=== PATIENT | female | born 1930 | race Two or more races ===

== ENCOUNTER 2019-04-20 07:40 | Inpatient (IN) | payer MEDICARE, MEDICAID ==
[~2019-04-20] VITALS: Ht 152.4 cm; Wt 65.6 kg
[2019-04-20 08:18] LABS: Basophils # (auto) 0.1 uL; Basophils % (auto) 0.9 % (0.0-2.0); Eosinophils # (auto) 0 uL; Hematocrit 42.7 % (36.0-46.0); Hemoglobin 14.3 g/dL (12.2-16.2); Lymphocytes # (auto) 0.3 uL; Lymphocytes % (auto) 2.2 % (10.0-50.0); Mean Corpuscular Hemoglobin 32.3 pg (28.0-32.0); Mean Corpuscular Hgb Conc. 33.4 g/dL (32.0-36.0); Mean Corpuscular Volume 96.8 fL (80.0-100.0); Monocytes # (auto) 0.9 uL; Monocytes % (auto) 6.6 % (0.0-12.0); Neutrophils # (auto) 11.7 uL; Neutrophils % (auto) 90.3 % (37.0-80.0); Platelet Count (auto) 204 10^3/uL (140-450); Red Blood Cells 4.42 10^6/uL (4.0-5.20); Red Cell Distribution Width 15.9 % (11.8-14.3)
[2019-04-20 08:37] LABS: Albumin 3.9 g/dL (3.4-5.0); Anion Gap 7 (5-15); BUN/Creatinine Ratio 31.9; Blood Urea Nitrogen 23 mg/dL (7-18); Calcium 9.3 mg/dL (8.5-10.1); Carbon Dioxide 25 mmol/L (21-32); Chloride 102 mmol/L (98-107); GFR African American 98 mL/min; GFR Non-African American 81 mL/min; Glucose 123 mg/dL (74-106); Potassium 3.8 mmol/L (3.5-5.1); Sodium 134 mmol/L (136-145)
[2019-04-20 08:46] LABS: Alanine Aminotransferase 1835 U/L (13-56); Alkaline Phosphatase 292 U/L (45-117); Aspartate Aminotransferase 1719 U/L (15-37); Bilirubin, Total 2.9 mg/dL (0.2-1.0); Total Protein 8.4 g/dL (6.4-8.2)
[2019-04-20 09:23] LABS: Urine Bacteria FEW /hpf (None Seen); Urine Blood 2+ /uL (Negative); Urine Mucus FEW (None Seen); Urine Specific Gravity 1.033 (1.001-1.035); Urine WBC 1 /hpf (0 - 5)
[2019-04-20 10:17] LABS: Amylase 37 U/L (25-115); Lipase 86 U/L (73-393)
[2019-04-20] MEDS ORDERED: MORPHINE SULFATE 4 MG/ML SYR/VIAL IV PRN ×2 (13:00)
[2019-04-20] MEDS ORDERED: NITROGLYCERIN 0.4 MG SL TAB SL PRN (13:00)
[2019-04-20] MEDS ORDERED: MORPHINE SULF INJ 2 MG/ML SYRINGE 1ML IV PRN (13:00)
[2019-04-20] MEDS ORDERED: cefTRIAXone 1GM/50ML D5W 50 ML IV ONE (13:00)
[2019-04-20] MEDS ORDERED: ONDANSETRON HCL 4 MG/2 ML VIAL IV PRN (13:00)
[2019-04-20] MEDS: SODIUM CHLORIDE 0.9% 1,000 ML IV SCH ×2 (13:49→23:50)
[2019-04-20] MEDS ORDERED: IOHEXOL 350 MG/ML 100ML IJ ONE ×2 (16:14→18:10)
--- NOTE | 2019-04-20 16:20 | NUR ---
Telemetry admit from ER Patient admitted to Telemetry unit after SBAR received. Patient oriented to primary RN, unit, room, bed, and unit policies regarding patient care and visiting hours, patient's son at bedside. Patient now on continuous telemetry monitoring, tele box #12 and telemetry reading on arrival to unit is ST in the low 100's. Bed in lowest, locked position with side rails up x2. Fall precautions in place and call light within reach. All questions and concerns addressed, patient verbalized understanding via waste hand by family member. Will continue to monitor Q1hr/PRN.
[2019-04-20 16:35] VITALS: BP 129/50
--- NOTE | 2019-04-20 16:37 | NUR ---
PYREXIA Patient has elevated temperature, 101.8 orally. , Dr. Desai, aware, new orders received.
[2019-04-20] MEDS ORDERED: IBUPROFEN 100MG/5ML ORAL SUSP 100 MG/5 ML UD GT ONE (16:45)
[2019-04-20] MEDS ORDERED: METH2.5T3 PO (16:54)
[2019-04-20] MEDS ORDERED: ACET-1156 PO (16:54)
[2019-04-20] MEDS ORDERED: GLIM2TAB33 PO (16:54)
[2019-04-20] MEDS ORDERED: OXYB5TAB24 PO (16:54)
[2019-04-20] MEDS ORDERED: FOLI1TAB6 PO (16:54)
[2019-04-20] MEDS ORDERED: CERTKIT SC (16:54)
[2019-04-20] MEDS ORDERED: CHOL20007 OR (16:54)
[2019-04-20] MEDS ORDERED: IBUPROFEN 400 MG TAB PO ONE (17:00)
--- NOTE | 2019-04-20 17:17 | NUR ---
IV insertion Additional IV access needed for CT angiogram. IV access obtained, via clean sterile technique by inserting 20 gauge catheter at right forearm after 2 attempts. IV secured properly. No trauma to site. Patient tolerated well.
--- NOTE | 2019-04-20 17:28 | NUR ---
ACETAMINOPHEN Dr. Desai aware that patient has been taking Acetaminophen 500mg BID x 5-6mos, new order for Acetaminophen toxicity test.
--- NOTE | 2019-04-20 17:50 | NUR ---
OFF UNIT Patient taken off unit via wheelchair for CT angio. No S/S of distress noted.
--- NOTE | 2019-04-20 18:27 | NUR ---
RETURN TO UNIT Patient returned to unit via wheelchair. No S/S of distress noted.
--- NOTE | 2019-04-20 18:33 | NUR ---
REASSESSMENT Oral temperature 99.9. Cooling measurements continued. Addendum: 04/20/19 at 1927 by STACY LYLES RN SPELLING CORRECTION: Measures
--- NOTE | 2019-04-20 19:30 | NUR ---
pening Shift Note Assumed care of patient, awake and alert. Family at the bedside. No S/S of distress/SOB or pain. Safety measures in place side rails x2 up, bed in lowest position, and call light within reach. Instructed on POC and to call for assist PRN, will continue to monitor for changes Q1hr and PRN.
[2019-04-20 22:00] VITALS: BP 106/55
[2019-04-21 05:00] VITALS: BP 127/41
[2019-04-21 06:03] LABS: Basophils # (auto) 0 uL; Basophils % (auto) 0.4 % (0.0-2.0); Eosinophils # (auto) 0.1 uL; Eosinophils % (auto) 0.8 % (0.0-7.0); Hematocrit 37.5 % (36.0-46.0); Hemoglobin 12.7 g/dL (12.2-16.2); Lymphocytes # (auto) 0.3 uL; Lymphocytes % (auto) 2.9 % (10.0-50.0); Mean Corpuscular Hemoglobin 32.5 pg (28.0-32.0); Mean Corpuscular Hgb Conc. 33.8 g/dL (32.0-36.0); Mean Corpuscular Volume 96.3 fL (80.0-100.0); Monocytes # (auto) 0.8 uL; Monocytes % (auto) 8.3 % (0.0-12.0); Neutrophils # (auto) 8.1 uL; Neutrophils % (auto) 87.6 % (37.0-80.0); Platelet Count (auto) 149 10^3/uL (140-450); Red Blood Cells 3.89 10^6/uL (4.0-5.20); Red Cell Distribution Width 15.7 % (11.8-14.3); White Blood Cell 9.2 10^3/uL (4.4-10.8)
[2019-04-21 06:20] LABS: Potassium 3.4 mmol/L (3.5-5.1)
[2019-04-21 06:31] LABS: Albumin 2.8 g/dL (3.4-5.0); BUN/Creatinine Ratio 34.4; Bilirubin, Total 1.4 mg/dL (0.2-1.0); Total Protein 6.7 g/dL (6.4-8.2)
[2019-04-21 08:21] LABS: Hepatitis B Surface Antibody Negative
[2019-04-21 08:59] LABS: Hepatitis A Total Antibody Positive
[2019-04-21 09:00] VITALS: BP 125/48
[2019-04-21] MEDS ORDERED: cefTRIAXone 1GM/50ML D5W 50 ML IV SCH (09:00)
[2019-04-21] MEDS: SODIUM CHLORIDE 0.9% 1,000 ML IV SCH (09:30)
[2019-04-21] MEDS ORDERED: PANTOPRAZOLE 40 MG TAB PO SCH (10:00)
[2019-04-21] MEDS ORDERED: ENOXAPARIN SOD 40 MG/0.4 ML SYRINGE SC SCH (10:00)
--- NOTE | 2019-04-21 10:50 | NUR ---
Dr. Valencia at the bedside. Patient states abdominal pain has ceased. Patient ready to return home. Addendum: 04/21/19 at 1056 by EBONY DALY RN RN Discharge orders pending. Will continue to monitor.
[2019-04-21 13:24] LABS: Hepatitis B Core Total AB Negative; Hepatitis B Surface Antigen Negative (Negative); Hepatitis C Antibody Negative (Negative)
[2019-04-21 13:26] VITALS: BP 138/61
--- NOTE | 2019-04-21 15:07 | NUR ---
Discharge: Patient discharged. Patient left unit at 1507 escorted by family member. 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
== END 2019-04-21 15:07 | disposition home or self-care (01) | DRG 241 ==
LOC: ER 07:40 → TELE 07:41 → TELE-EAST 16:50
PROVIDERS: ADMIT Internal Medicine; ATTEND Internal Medicine
DX: K29.00 Acute gastritis without bleeding (principal); N17.0 Acute kidney failure with tubular necrosis; R65.10 Systemic inflammatory response syndrome (SIRS) of non-infectious origin without acute organ dysfunction; E11.21 Type 2 diabetes mellitus with diabetic nephropathy; I31.3 Pericardial effusion (noninflammatory); E86.0 Dehydration; E87.1 Hypo-osmolality and hyponatremia; N39.0 Urinary tract infection, site not specified; R31.9 Hematuria, unspecified; E11.22 Type 2 diabetes mellitus with diabetic chronic kidney disease; D72.829 Elevated white blood cell count, unspecified; K57.90 Diverticulosis of intestine, part unspecified, without perforation or abscess without bleeding; E78.5 Hyperlipidemia, unspecified; H91.90 Unspecified hearing loss, unspecified ear; M81.0 Age-related osteoporosis without current pathological fracture; Z96.653 Presence of artificial knee joint, bilateral; E87.6 Hypokalemia; M19.90 Unspecified osteoarthritis, unspecified site; N18.9 Chronic kidney disease, unspecified; K82.8 Other specified diseases of gallbladder; I51.7 Cardiomegaly
CPT/HCPCS: 36415; 70450; 71045; 71275; 74176; 76705; 76775; 80053; 80329; 81001; 82150; 82378; 82550; 82962; 83605; 83690; 84484; 85025; 85379; 85652; 86141; 86704; 86706; 86708; 86803; 87040; 87086; 87340; 93005; G0378; J0696